=== PATIENT | male | born 1970 | race Caucasian/White ===

== ENCOUNTER 2016-06-30 02:53 | Inpatient (IN) | payer OTHER ==
[~2016-06-30] VITALS: Ht 175.3 cm; Wt 97.1 kg
[2016-06-30] VITALS (14 sets, daily range): BP systolic 123–134; BP diastolic 67–81; PULSE 69–105; RESP 10–22; TEMP 97.8–100.2; O2SAT 96–100
[2016-06-30] MEDS ORDERED: ceFAZolin 2 GM PREMIX 50 ML ONE (02:59)
[2016-06-30] MEDS ORDERED: DIPHTH/TETANUS/ACEL PERTUSSIS (BOOSTER) 0.5 ML VIAL/PFS IM ONE (03:00)
[2016-06-30 03:14] LABS: BASOPHIL % 0.2 % (0.0-2.0); EOSINOPHIL % 0.2 % (0.0-4.0); HEMATOCRIT 45.9 % (39.0-51.0); LYMPH % 9.3 % (9.0-44.0); LYMPHOCYTE # 1.4 TH/MM3 (1.0-4.8); MEAN CORPUSCULAR HEMOGLOBIN 30.7 PG (27.0-34.0); MEAN CORPUSCULAR HGB CONC 33.8 % (32.0-36.0); MONO % 8.2 % (0.0-8.0); NEUT % 82.1 % (16.0-70.0); PLATELET COUNT 240 TH/MM3 (150-450); RED BLOOD COUNT 5.04 MIL/MM3 (4.50-5.90); RED CELL DISTRIBUTION WIDTH 13.8 % (11.6-17.2); WHITE BLOOD COUNT 14.6 TH/MM3 (4.0-11.0)
[2016-06-30 03:15] LABS: HEMO FLAGS AUTO DIFF
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
[2016-06-30 03:26] LABS: APTT (PATIENT) 22.6 SEC (24.3-30.1); PROTHROMBIN TIME - PATIENT 11.3 SEC (9.8-11.6)
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
[2016-06-30] MEDS ORDERED: IOHEXOL 350 MG/ML 10 ML VIAL (for RAD DIAG) IV ONE (03:41)
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
[2016-06-30 03:48] LABS: BANDS 22 % (0-6); BASOPHILS 1 % (0-2); METAMYELOCYTES 1 % (0-1); NEUTROPHIL # MANUAL DIFF 12.4 TH/MM3 (1.8-7.7); PLATELET ESTIMATE SMEAR NORMAL (NORMAL); PLATELET MORPHOLOGY NORMAL (NORMAL); POLYS (SEG NEUTROPHILS) 62 % (16-70); SCAN/DIFF FINAL DIFF MANUAL; WBC DIFF SAMPLE 100
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
[2016-06-30] MEDS ORDERED: ONDANSETRON HCL 4 MG/2 ML VIAL IV PRN (04:00)
[2016-06-30] MEDS ORDERED: CHLORHEXIDINE GLUCONATE 2 % 1 PACK (2 CLOTHS) TOP PRN (04:00)
[2016-06-30] MEDS: CHLORHEXIDINE GLUCONATE 2 % 1 PACK (2 CLOTHS) TOP SCH (04:00)
[2016-06-30] MEDS ORDERED: MISCELLANEOUS NURSING INFORMATION XX SCH (04:00)
[2016-06-30] MEDS ORDERED: SODIUM CHLORIDE 0.9% FLUSH 10 ML FLUSH IV FLUSH PRN (04:00)
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
[2016-06-30] MEDS: HYDROmorphone HCL PF 1 MG/ML VIAL IV PRN ×5 (04:18→21:56)
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
[2016-06-30] MEDS: SODIUM CHLOR 0.9% 1000 ML INJ 1,000 ML IV SCH ×3 (04:41→19:37)
[2016-06-30] MEDS ORDERED: RESP: ALBUTEROL 2.5 MG/3 ML NEB (PRN) INH (04:45)
[2016-06-30 04:58] LABS: CKMB 21.3 NG/ML (0.5-3.6)
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
[2016-06-30] MEDS: ACETAMINOPHEN/HYDROcodone 325 MG/5 MG TAB PO PRN ×3 (06:59→19:38)
[2016-06-30] MEDS ORDERED: GENTAMICIN SULFATE 80 MG/2 ML VIAL ONE (08:21)
[2016-06-30] MEDS: GENTAMICIN 80 MG PREMIX 100 ML IV SCH ×4 (08:39→23:34)
[2016-06-30] MEDS: ceFAZolin 2 GM PREMIX 50 ML IV SCH ×2 (08:39→16:35)
[2016-06-30] MEDS: BACITRACIN TOP OINT 15 GM TUBE TOPICAL SCH ×2 (08:40→19:37)
[2016-06-30] MEDS: LACTULOSE SYRUP 20 GM/30 ML CUP PO SCH (08:40)
[2016-06-30] MEDS: PANTOPRAZOLE SODIUM 40 MG VIAL IV SCH (08:40)
[2016-06-30] MEDS: SODIUM CHLORIDE 0.9% FLUSH 10 ML FLUSH IV FLUSH SCH ×2 (08:40→19:37)
[2016-06-30] MEDS ORDERED: SODIUM CHLORIDE 0.9% FLUSH 10 ML FLUSH SCH (09:00)
[2016-06-30] MEDS ORDERED: ACETAMINOPHEN 1000 MG/100 ML VIAL IV ONE (09:44)
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
[2016-06-30] MEDS ORDERED: Post-op Orders (for Pharmacy) MISC XX ONE (10:30)
[2016-06-30] MEDS ORDERED: SODIUM CHLORIDE 0.9% FLUSH 5 ML FLUSH IVF PRN (10:30)
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
[2016-06-30] MEDS ORDERED: PROPOFOL 200 MG/20 ML AMP IV ONE (12:00)
[2016-06-30] MEDS ORDERED: ONDANSETRON HCL 4 MG/2 ML VIAL IV PUSH ONE (12:00)
[2016-06-30 14:51] LABS: CKMB 260.3 NG/ML (0.5-3.6)
[2016-06-30] MEDS ORDERED: GADODIAMIDE PF 287 MG/ML 20 ML VIAL (for RAD MRI) IV ONE (14:55)
--- NOTE | 2016-06-30 15:08 | RADRPT ---
EXAM DATE/TIME: 06/30/2016 14:26 [facility] COMPARISON: CT CERVICAL SPINE W/O CONTRAST, June 30, 2016, 3:06. INDICATIONS : Fracture. MEDICAL HISTORY : None. SURGICAL HISTORY : Right thumb. Left ankle. ENCOUNTER: Subsequent ACUITY: 2 day PAIN SCORE: 8/10 LOCATION: neck TECHNIQUE: Multiplanar, multisequence MRI examination of the cervical spine was performed. FINDINGS: Alignment is normal. There is a subtle superior endplate compression fracture suspected at T1, T2 and T3. There is mild prevertebral soft tissue swelling from C2-C4. Prominent increased signal on invers ion recovery images with the paraspinal soft tissues and interspinous ligament regions. The patient h as bilateral C7 laminar fractures with corresponding increased T2 signal and fluid at this level. No evidence of spinal stenosis. There are no epidural collections. There is focal discontinuity of the l igamentum flavum at C6-7. C2-3: The thecal sac has a normal configuration. There is no evidence of disc herniation or spinal canal s tenosis. The neural foramina are patent bilaterally. C3-C4: The thecal sac has a normal configuration. There is no evidence of disc herniation or spinal canal s tenosis. The neural foramina are patent bilaterally. C4-C5: The thecal sac has a normal configuration. There is no evidence of disc herniation or spinal canal s tenosis. The neural foramina are patent bilaterally. C5-C6: The thecal sac has a normal configuration. There is no evidence of disc herniation or spinal canal s tenosis. The neural foramina are patent bilaterally. C6-C7: The thecal sac has a normal configuration. There is no evidence of disc herniation or spinal canal s tenosis. The neural foramina are patent bilaterally. C7-T1: The thecal sac has a normal configuration. There is no evidence of disc herniation or spinal canal s tenosis. The neural foramina are patent bilaterally. CONCLUSION: 1. The patient's C7 laminar fractures are best assessed on the CT cervical spine. In addition there a re subtle superior endplate compression deformities of T1-T3 which are incompletely evaluated on this study. 2. The spinal cord is normal in appearance. 3. There is prominent edema of the paraspinal soft tissues posteriorly in the cervical region, and in creased signal is present consistent with edema and interspinous ligament injury. There is abnormal s eparation of the C6 and C7 processes with a distance of 1.4 cm. 4. Ligamentous injury at C6-7 as above involving the ligamentum flavum. Mitch Barahona MD on June 30, 2016 at 14:55 Board Certified Radiologist. This report was verified electronically.
--- NOTE | 2016-06-30 15:35 | RADRPT ---
EXAM DATE/TIME: 06/30/2016 14:26 [facility] COMPARISON: No previous studies available for comparison. INDICATIONS : Weakness. CONTRAST: 20 cc Omniscan (gadodiamide) IV MEDICAL HISTORY : None. SURGICAL HISTORY : Right thumb. Left ankle. ENCOUNTER: Subsequent ACUITY: 1 day PAIN SCORE: 8/10 LOCATION: neck Percent stenosis is calculated using the diameter of the stenotic region over the diameter of the nor mal distal internal carotid artery. TECHNIQUE: Bolus infused MRA of the extracranial circulation was performed using a neurovascular coil. Post pro cessing was performed including rotating subvolume maximum intensity projections of each carotid komal ry, rotating full volume maximum intensity projections of both carotid arteries, sagittal and coronal sliding thin slab reformations of each carotid artery, and left oblique sliding thin slab reformatio n through the aortic arch to include the origin of the arch branch vessels. FINDINGS: AORTIC ARCH: There is a three vessel origin of the great vessels from the aorta. No evidence of ostial narrowing. RIGHT CAROTID: The common carotid artery is intact. The carotid bulb has a normal configuration without ulceration or narrowing. The internal carotid artery lumen is smooth without stenosis. The external carotid ar negar is intact. LEFT CAROTID: The common carotid artery is intact. The carotid bulb has a normal configuration without ulceration or narrowing. The internal carotid artery lumen is smooth without stenosis. The external carotid ar negar is intact. VERTEBRALS: The vertebral arteries have a symmetric diameter. No stenotic lesions are seen. CONCLUSION: Normal examination. Mitch Barahona MD on June 30, 2016 at 15:33 Board Certified Radiologist. This report was verified electronically.
[2016-06-30] MEDS ORDERED: SODIUM CHLORIDE 0.9% FLUSH 5 ML FLUSH IVF SCH (21:00)
[2016-06-30 22:03] LABS: CKMB 242.1 NG/ML (0.5-3.6)
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
[2016-07-01] VITALS (14 sets, daily range): BP systolic 104–145; BP diastolic 59–92; PULSE 70–89; RESP 14–25; TEMP 98–99.7; O2SAT 94–100
[2016-07-01] MEDS: ceFAZolin 2 GM PREMIX 50 ML IV SCH ×3 (02:04→17:22)
[2016-07-01] MEDS: HYDROmorphone HCL PF 1 MG/ML VIAL IV PRN ×5 (02:05→20:51)
[2016-07-01] MEDS: CHLORHEXIDINE GLUCONATE 2 % 1 PACK (2 CLOTHS) TOP SCH (04:00)
[2016-07-01 04:23] LABS: AUTOMATED NEUTROPHIL # 3.2 TH/MM3 (1.8-7.7); BASOPHIL % 0.5 % (0.0-2.0); EOSINOPHIL % 0.9 % (0.0-4.0); HEMATOCRIT 36.4 % (39.0-51.0); HEMO FLAGS DIFF FINAL; LYMPH % 25.9 % (9.0-44.0); LYMPHOCYTE # 1.3 TH/MM3 (1.0-4.8); MEAN CELL VOLUME 90.7 FL (80.0-100.0); MEAN CORPUSCULAR HEMOGLOBIN 30.1 PG (27.0-34.0); MEAN CORPUSCULAR HGB CONC 33.2 % (32.0-36.0); MONO % 9.7 % (0.0-8.0); PLATELET COUNT 119 TH/MM3 (150-450); RED BLOOD COUNT 4.01 MIL/MM3 (4.50-5.90); RED CELL DISTRIBUTION WIDTH 13.7 % (11.6-17.2); WHITE BLOOD COUNT 5.1 TH/MM3 (4.0-11.0)
[2016-07-01 05:23] LABS: BICARBONATE 26.7 MEQ/L (21.0-32.0); MAGNESIUM 2.3 MG/DL (1.5-2.5); POTASSIUM 4.1 MEQ/L (3.5-5.1)
[2016-07-01 05:52] LABS: TOTAL BILIRUBIN ADULT 0.3 MG/DL (0.2-1.0)
--- NOTE | 2016-07-01 06:27 | RADRPT ---
EXAM DATE/TIME: 07/01/2016 04:38 [facility] COMPARISON: CHEST SINGLE AP, June 30, 2016, 2:47. INDICATIONS : Shortness of breath, possible pulmonary disease. MEDICAL HISTORY : None. SURGICAL HISTORY : None. ENCOUNTER: Subsequent ACUITY: 3 days PAIN SCORE: Non-responsive. LOCATION: Bilateral chest FINDINGS: The cardiac silhouette is enlarged in transverse diameter. The lungs are free of acute parenchymal op acity. No effusions are identified. CONCLUSION: 1. Cardiomegaly. No acute pulmonary disease. Bjorn Sumner MD on July 01, 2016 at 6:25 Board Certified Radiologist. This report was verified electronically.
[2016-07-01 07:20] LABS: CKMB 151.5 NG/ML (0.5-3.6)
[2016-07-01 08:12] LABS: CALCIUM-PROTEIN CORRECTED 8.6 MG/DL (8.5-10.1)
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
[2016-07-01] MEDS: BACITRACIN TOP OINT 15 GM TUBE TOPICAL SCH ×2 (09:00→19:45)
[2016-07-01] MEDS: LACTULOSE SYRUP 20 GM/30 ML CUP PO SCH (09:05)
[2016-07-01] MEDS: PANTOPRAZOLE SODIUM 40 MG VIAL IV SCH (09:06)
[2016-07-01] MEDS: SODIUM BICARBONATE 8.4% INJ 150 MEQ in WATER STERILE FOR INJ 850 ML IV SCH ×3 (09:07→23:39)
[2016-07-01] MEDS: GENTAMICIN 80 MG PREMIX 100 ML IV SCH ×3 (09:08→23:39)
[2016-07-01] MEDS: DOCUSATE SODIUM 100 MG CAP PO SCH ×2 (09:09→19:44)
[2016-07-01] MEDS: SODIUM CHLORIDE 0.9% FLUSH 10 ML FLUSH IV FLUSH SCH ×2 (09:10→19:44)
[2016-07-01] MEDS: SODIUM CHLOR 0.9% 1000 ML INJ 1,000 ML IV SCH ×2 (09:54→19:54)
[2016-07-01] MEDS: ACETAMINOPHEN/HYDROcodone 325 MG/5 MG TAB PO PRN ×2 (10:32→19:44)
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
[2016-07-01] MEDS ORDERED: LIDOCAINE HCL 1% 50 ML VIAL ONE (14:08)
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
[2016-07-01] MEDS: MAGNESIUM HYDROXIDE SUSP 30 ML CUP PO SCH (19:44)
[2016-07-02] VITALS (12 sets, daily range): BP systolic 113–144; BP diastolic 63–91; PULSE 68–92; RESP 9–26; TEMP 97.8–99.1; O2SAT 94–98
[2016-07-02] MEDS: HYDROmorphone HCL PF 1 MG/ML VIAL IV PRN ×7 (00:04→22:24)
[2016-07-02] MEDS: ceFAZolin 2 GM PREMIX 50 ML IV SCH ×3 (01:31→17:36)
[2016-07-02] MEDS: CHLORHEXIDINE GLUCONATE 2 % 1 PACK (2 CLOTHS) TOP SCH (04:00)
[2016-07-02 04:15] LABS: AUTOMATED NEUTROPHIL # 2.6 TH/MM3 (1.8-7.7); BASOPHIL % 0.5 % (0.0-2.0); EOSINOPHIL # 0.1 TH/MM3 (0-0.4); EOSINOPHIL % 2.7 % (0.0-4.0); HEMATOCRIT 33.4 % (39.0-51.0); HEMO FLAGS DIFF FINAL; LYMPH % 29.3 % (9.0-44.0); LYMPHOCYTE # 1.3 TH/MM3 (1.0-4.8); MEAN CORPUSCULAR HEMOGLOBIN 31.5 PG (27.0-34.0); MONO % 8.5 % (0.0-8.0); PLATELET COUNT 114 TH/MM3 (150-450); RED BLOOD COUNT 3.71 MIL/MM3 (4.50-5.90); RED CELL DISTRIBUTION WIDTH 13.3 % (11.6-17.2); WHITE BLOOD COUNT 4.4 TH/MM3 (4.0-11.0)
[2016-07-02] MEDS: SODIUM CHLOR 0.9% 1000 ML INJ 1,000 ML IV SCH ×2 (04:15→15:38)
[2016-07-02 04:35] LABS: ALT (GPT) 113 U/L (12-78); ANION GAP 6 MEQ/L (5-15); AST (GOT) 411 U/L (15-37); BICARBONATE 32.5 MEQ/L (21.0-32.0); BLOOD UREA NITROGEN 4 MG/DL (7-18); CHLORIDE 99 MEQ/L (98-107); GLOMERULAR FILTRATION RATE 99 ML/MIN (>89); MAGNESIUM 2.1 MG/DL (1.5-2.5); POTASSIUM 3.8 MEQ/L (3.5-5.1); SODIUM (NA) 137 MEQ/L (136-145)
[2016-07-02 05:01] LABS: ALKALINE PHOSPHATASE 40 U/L (45-117); CREATINE KINASE 11362 U/L (39-308); TOTAL BILIRUBIN ADULT 0.4 MG/DL (0.2-1.0)
[2016-07-02 05:29] LABS: CKMB 29.6 NG/ML (0.5-3.6)
[2016-07-02] MEDS: ACETAMINOPHEN/HYDROcodone 325 MG/5 MG TAB PO PRN (05:48)
[2016-07-02] MEDS: BACITRACIN TOP OINT 15 GM TUBE TOPICAL SCH ×2 (09:00→21:00)
[2016-07-02] MEDS: PANTOPRAZOLE SODIUM 40 MG VIAL IV SCH (09:40)
[2016-07-02] MEDS: LACTULOSE SYRUP 20 GM/30 ML CUP PO SCH (09:40)
[2016-07-02] MEDS: DOCUSATE SODIUM 100 MG CAP PO SCH ×2 (09:40→20:10)
[2016-07-02] MEDS: GENTAMICIN 80 MG PREMIX 100 ML IV SCH ×2 (09:41→15:39)
[2016-07-02] MEDS: SODIUM CHLORIDE 0.9% FLUSH 10 ML FLUSH IV FLUSH SCH ×2 (09:42→20:08)
[2016-07-02] MEDS: SODIUM BICARBONATE 8.4% INJ 150 MEQ in WATER STERILE FOR INJ 850 ML IV SCH ×2 (10:03→20:08)
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
[2016-07-02] MEDS: ENOXAPARIN SODIUM 30 MG/0.3 ML SYRINGE SQ SCH (12:21)
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
[2016-07-02] MEDS: SODIUM CHLORIDE 0.9% FLUSH 10 ML FLUSH IV FLUSH PRN (17:36)
[2016-07-02] MEDS: MAGNESIUM HYDROXIDE SUSP 30 ML CUP PO SCH (20:11)
[2016-07-03] VITALS: BP 130/78; PULSE 80; RESP 20; TEMP 98; O2SAT 97
[2016-07-03] MEDS: ENOXAPARIN SODIUM 30 MG/0.3 ML SYRINGE SQ SCH ×3 (01:19→22:33)
[2016-07-03] MEDS: GENTAMICIN 80 MG PREMIX 100 ML IV SCH (01:19)
[2016-07-03] MEDS: CHLORHEXIDINE GLUCONATE 2 % 1 PACK (2 CLOTHS) TOP SCH (01:20)
[2016-07-03] MEDS: SODIUM CHLOR 0.9% 1000 ML INJ 1,000 ML IV SCH ×3 (01:20→20:49)
[2016-07-03] MEDS: ceFAZolin 2 GM PREMIX 50 ML IV SCH (01:20)
[2016-07-03] MEDS: HYDROmorphone HCL PF 1 MG/ML VIAL IV PRN ×5 (01:33→22:32)
[2016-07-03] MEDS: SODIUM CHLORIDE 0.9% FLUSH 10 ML FLUSH IV FLUSH PRN (01:35)
[2016-07-03 06:15] LABS: AUTOMATED NEUTROPHIL # 2.3 TH/MM3 (1.8-7.7); BASOPHIL % 0.5 % (0.0-2.0); EOSINOPHIL # 0.2 TH/MM3 (0-0.4); EOSINOPHIL % 3.7 % (0.0-4.0); HEMATOCRIT 36.3 % (39.0-51.0); HEMO FLAGS DIFF FINAL; LYMPH % 37.5 % (9.0-44.0); LYMPHOCYTE # 1.8 TH/MM3 (1.0-4.8); MEAN CELL VOLUME 90.6 FL (80.0-100.0); MEAN CORPUSCULAR HEMOGLOBIN 30.5 PG (27.0-34.0); MEAN CORPUSCULAR HGB CONC 33.7 % (32.0-36.0); MONO % 9.9 % (0.0-8.0); NEUT % 48.4 % (16.0-70.0); PLATELET COUNT 122 TH/MM3 (150-450); RED BLOOD COUNT 4.01 MIL/MM3 (4.50-5.90); RED CELL DISTRIBUTION WIDTH 13.2 % (11.6-17.2); WHITE BLOOD COUNT 4.8 TH/MM3 (4.0-11.0)
[2016-07-03 06:50] LABS: ALKALINE PHOSPHATASE 42 U/L (45-117); ALT (GPT) 100 U/L (12-78); ANION GAP 4 MEQ/L (5-15); AST (GOT) 341 U/L (15-37); BLOOD UREA NITROGEN 7 MG/DL (7-18); CHLORIDE 99 MEQ/L (98-107); CREATINE KINASE 6783 U/L (39-308); GLOMERULAR FILTRATION RATE 83 ML/MIN (>89); MAGNESIUM 2.2 MG/DL (1.5-2.5); POTASSIUM 4.2 MEQ/L (3.5-5.1); SODIUM (NA) 137 MEQ/L (136-145); TOTAL BILIRUBIN ADULT 0.4 MG/DL (0.2-1.0)
[2016-07-03 07:06] LABS: CKMB 8.7 NG/ML (0.5-3.6)
[2016-07-03 07:52] VITALS: O2SAT 99
[2016-07-03 08:00] VITALS: BP 127/63; PULSE 67; RESP 17; TEMP 97.9; O2SAT 97
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
[2016-07-03] MEDS: SODIUM BICARBONATE 8.4% INJ 150 MEQ in WATER STERILE FOR INJ 850 ML IV SCH ×2 (08:48→20:47)
[2016-07-03] MEDS: PANTOPRAZOLE SODIUM 40 MG VIAL IV SCH (08:50)
[2016-07-03] MEDS: SODIUM CHLORIDE 0.9% FLUSH 10 ML FLUSH IV FLUSH SCH ×2 (08:50→20:21)
[2016-07-03] MEDS: LACTULOSE SYRUP 20 GM/30 ML CUP PO SCH (08:50)
[2016-07-03] MEDS: DOCUSATE SODIUM 100 MG CAP PO SCH ×2 (08:50→20:21)
[2016-07-03] MEDS: BACITRACIN TOP OINT 15 GM TUBE TOPICAL SCH ×2 (08:52→20:22)
[2016-07-03] MEDS: ACETAMINOPHEN/HYDROcodone 325 MG/5 MG TAB PO PRN (09:04)
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
[2016-07-03 12:00] VITALS: BP 141/81; PULSE 87; RESP 17; TEMP 98.2; O2SAT 97
[2016-07-03 16:00] VITALS: BP 116/75; PULSE 63; RESP 19; TEMP 97.8; O2SAT 95
[2016-07-03] MEDS: MAGNESIUM HYDROXIDE SUSP 30 ML CUP PO SCH (20:21)
[2016-07-03] MEDS: ACETAMINOPHEN 325 MG TAB PO PRN (22:42)
[2016-07-04] MEDS: HYDROmorphone HCL PF 1 MG/ML VIAL IV PRN ×4 (02:40→22:35)
[2016-07-04] MEDS: CHLORHEXIDINE GLUCONATE 2 % 1 PACK (2 CLOTHS) TOP SCH (04:00)
[2016-07-04 06:25] LABS: AUTOMATED NEUTROPHIL # 2.1 TH/MM3 (1.8-7.7); BASOPHIL % 0.4 % (0.0-2.0); EOSINOPHIL # 0.2 TH/MM3 (0-0.4); HEMATOCRIT 38.9 % (39.0-51.0); HEMO FLAGS DIFF FINAL; LYMPH % 34.6 % (9.0-44.0); LYMPHOCYTE # 1.4 TH/MM3 (1.0-4.8); MEAN CELL VOLUME 89.3 FL (80.0-100.0); MEAN CORPUSCULAR HEMOGLOBIN 30.8 PG (27.0-34.0); MEAN CORPUSCULAR HGB CONC 34.5 % (32.0-36.0); PLATELET COUNT 170 TH/MM3 (150-450); RED BLOOD COUNT 4.36 MIL/MM3 (4.50-5.90); RED CELL DISTRIBUTION WIDTH 13.2 % (11.6-17.2)
[2016-07-04 06:58] LABS: ALT (GPT) 86 U/L (12-78); ANION GAP 5 MEQ/L (5-15); AST (GOT) 236 U/L (15-37); BICARBONATE 32.9 MEQ/L (21.0-32.0); BLOOD UREA NITROGEN 10 MG/DL (7-18); CHLORIDE 98 MEQ/L (98-107); GLOMERULAR FILTRATION RATE 90 ML/MIN (>89); MAGNESIUM 2.3 MG/DL (1.5-2.5); SODIUM (NA) 136 MEQ/L (136-145)
[2016-07-04 07:11] LABS: ALKALINE PHOSPHATASE 45 U/L (45-117); CREATINE KINASE 3135 U/L (39-308); TOTAL BILIRUBIN ADULT 0.5 MG/DL (0.2-1.0)
[2016-07-04 08:00] VITALS: BP 123/71; PULSE 72; RESP 18; TEMP 97.3; O2SAT 94
[2016-07-04] MEDS ORDERED: MILKSUS PO (08:06)
[2016-07-04] MEDS ORDERED: PANT40TA3 PO (08:06)
[2016-07-04] MEDS ORDERED: LACT10SO PO (08:06)
[2016-07-04] MEDS ORDERED: HYDR-3516 PO (08:06)
[2016-07-04] MEDS ORDERED: DOCU1CAP39 PO (08:06)
[2016-07-04] MEDS ORDERED: ENOX30P SQ (08:06)
[2016-07-04] MEDS: LACTULOSE SYRUP 20 GM/30 ML CUP PO SCH (09:00)
[2016-07-04] MEDS: DOCUSATE SODIUM 100 MG CAP PO SCH ×2 (09:21→21:29)
[2016-07-04] MEDS: SODIUM BICARBONATE 8.4% INJ 150 MEQ in WATER STERILE FOR INJ 850 ML IV SCH ×2 (09:22→21:30)
[2016-07-04] MEDS: SODIUM CHLORIDE 0.9% FLUSH 10 ML FLUSH IV FLUSH SCH ×2 (09:22→21:29)
[2016-07-04] MEDS: PANTOPRAZOLE SOD 40 MG DELAYED RELEASE TAB PO SCH (09:23)
[2016-07-04] MEDS: BACITRACIN TOP OINT 15 GM TUBE TOPICAL SCH ×2 (09:25→21:29)
[2016-07-04] MEDS: ACETAMINOPHEN/HYDROcodone 325 MG/5 MG TAB PO PRN ×3 (11:37→21:30)
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
[2016-07-04 12:00] VITALS: BP 134/80; PULSE 84; RESP 16; TEMP 97.5; O2SAT 97
[2016-07-04] MEDS: ENOXAPARIN SODIUM 30 MG/0.3 ML SYRINGE SQ SCH ×2 (15:10→22:35)
[2016-07-04 16:00] VITALS: BP 124/72; PULSE 88; RESP 16; TEMP 97.3; O2SAT 97
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
[2016-07-04 20:00] VITALS: BP 126/75; PULSE 77; RESP 16; TEMP 97.2; O2SAT 97
--- NOTE | 2016-07-04 20:01 | RADRPT ---
EXAM DATE/TIME: 07/04/2016 19:05 [place] COMPARISON: No previous studies available for comparison. INDICATIONS : Follow-up cervical fracture. MEDICAL HISTORY : Cervical fracture. SURGICAL HISTORY : None. ENCOUNTER: Subsequent ACUITY: 4 - 6 days PAIN SCORE: 5/10 LOCATION: Bilateral neck. FINDINGS: There are fractures through the lamina of C7 bilaterally. There is mild superior endplate depression at the superior endplate of T1. No significant change in alignment between neutral, flexion and exten jennifer views. CONCLUSION: Bilateral lamina fractures at C7 without significant change in alignment on flexion and extension vie ws at the cervicothoracic junction. Mild superior endplate depression at T1 of uncertain age. Chandana Carmen MD on July 04, 2016 at 19:53 Board Certified Radiologist. This report was verified electronically.
[2016-07-04] MEDS: MAGNESIUM HYDROXIDE SUSP 30 ML CUP PO SCH (21:29)
[2016-07-04] MEDS: diphenhydrAMINE HCL 25 MG CAP PO PRN (22:35)
[2016-07-04] MEDS: ACETAMINOPHEN 325 MG TAB PO PRN (22:42)
[2016-07-05] VITALS: BP 119/66; PULSE 71; RESP 16; TEMP 97.9; O2SAT 93
[2016-07-05] MEDS: HYDROmorphone HCL PF 1 MG/ML VIAL IV PRN ×2 (04:00→10:32)
[2016-07-05] MEDS: SODIUM BICARBONATE 8.4% INJ 150 MEQ in WATER STERILE FOR INJ 850 ML IV SCH (04:03)
[2016-07-05 05:51] LABS: AUTOMATED NEUTROPHIL # 2.1 TH/MM3 (1.8-7.7); BASOPHIL % 0.5 % (0.0-2.0); EOSINOPHIL # 0.2 TH/MM3 (0-0.4); EOSINOPHIL % 5.4 % (0.0-4.0); HEMATOCRIT 39.2 % (39.0-51.0); HEMO FLAGS DIFF FINAL; LYMPH % 34.6 % (9.0-44.0); LYMPHOCYTE # 1.5 TH/MM3 (1.0-4.8); MEAN CELL VOLUME 89.8 FL (80.0-100.0); MEAN CORPUSCULAR HEMOGLOBIN 30.3 PG (27.0-34.0); MEAN CORPUSCULAR HGB CONC 33.7 % (32.0-36.0); MONO % 9.8 % (0.0-8.0); NEUT % 49.7 % (16.0-70.0); PLATELET COUNT 176 TH/MM3 (150-450); RED BLOOD COUNT 4.37 MIL/MM3 (4.50-5.90); RED CELL DISTRIBUTION WIDTH 13.3 % (11.6-17.2); WHITE BLOOD COUNT 4.3 TH/MM3 (4.0-11.0)
[2016-07-05 06:25] LABS: ALKALINE PHOSPHATASE 47 U/L (45-117); ALT (GPT) 90 U/L (12-78); ANION GAP 8 MEQ/L (5-15); AST (GOT) 168 U/L (15-37); BICARBONATE 31.9 MEQ/L (21.0-32.0); BLOOD UREA NITROGEN 13 MG/DL (7-18); CHLORIDE 97 MEQ/L (98-107); CREATINE KINASE 1387 U/L (39-308); GLOMERULAR FILTRATION RATE 81 ML/MIN (>89); MAGNESIUM 2.5 MG/DL (1.5-2.5); POTASSIUM 3.7 MEQ/L (3.5-5.1); SODIUM (NA) 137 MEQ/L (136-145); TOTAL BILIRUBIN ADULT 0.5 MG/DL (0.2-1.0)
[2016-07-05 06:50] LABS: CKMB 1.7 NG/ML (0.5-3.6)
[2016-07-05 08:00] VITALS: BP 106/67; PULSE 64; RESP 17; TEMP 98.3; O2SAT 97
[2016-07-05] MEDS: PANTOPRAZOLE SOD 40 MG DELAYED RELEASE TAB PO SCH (08:26)
[2016-07-05] MEDS: DOCUSATE SODIUM 100 MG CAP PO SCH ×2 (08:26→22:18)
[2016-07-05] MEDS: LACTULOSE SYRUP 20 GM/30 ML CUP PO SCH (08:26)
[2016-07-05] MEDS: ACETAMINOPHEN/HYDROcodone 325 MG/5 MG TAB PO PRN ×3 (08:27→22:17)
[2016-07-05] MEDS: SODIUM CHLORIDE 0.9% FLUSH 10 ML FLUSH IV FLUSH SCH (08:28)
[2016-07-05] MEDS: BACITRACIN TOP OINT 15 GM TUBE TOPICAL SCH ×2 (08:30→22:20)
[2016-07-05] MEDS: ENOXAPARIN SODIUM 30 MG/0.3 ML SYRINGE SQ SCH ×2 (10:32→22:19)
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
[2016-07-05] MEDS ORDERED: DIPH25CA PO (11:59)
[2016-07-05 12:00] VITALS: BP 140/84; PULSE 68; RESP 18; TEMP 98.4; O2SAT 98
[2016-07-05] MEDS: diphenhydrAMINE HCL 25 MG CAP PO PRN ×2 (12:22→22:16)
[2016-07-05] MEDS ORDERED: NEUR300C PO (14:09)
[2016-07-05] MEDS ORDERED: MELA1TAB22 PO (14:09)
[2016-07-05] MEDS: ACETAMINOPHEN 325 MG TAB PO PRN (14:11)
[2016-07-05 16:00] VITALS: BP 112/67; PULSE 80; RESP 18; TEMP 98.5; O2SAT 94
[2016-07-05] MEDS ORDERED: MELATONIN 5 MG TAB PO ONE (16:00)
[2016-07-05] MEDS: GABAPENTIN 300 MG CAP PO SCH (18:13)
[2016-07-05 20:00] VITALS: BP 123/72; PULSE 71; RESP 16; TEMP 97.7; O2SAT 98
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
[2016-07-05] MEDS: MAGNESIUM HYDROXIDE SUSP 30 ML CUP PO SCH (22:19)
[2016-07-06] VITALS: BP 119/70; PULSE 81; RESP 18; TEMP 97.2; O2SAT 98
[2016-07-06] MEDS: SODIUM CHLORIDE 0.9% FLUSH 10 ML FLUSH IV FLUSH SCH ×2 (00:26→08:00)
[2016-07-06] MEDS: ACETAMINOPHEN/HYDROcodone 325 MG/5 MG TAB PO PRN ×2 (02:33→12:51)
[2016-07-06 08:00] VITALS: BP 114/70; PULSE 67; RESP 18; TEMP 97.3; O2SAT 99
[2016-07-06] MEDS: GABAPENTIN 300 MG CAP PO SCH ×2 (08:00→12:50)
[2016-07-06] MEDS: LACTULOSE SYRUP 20 GM/30 ML CUP PO SCH (08:00)
[2016-07-06] MEDS: PANTOPRAZOLE SOD 40 MG DELAYED RELEASE TAB PO SCH (08:00)
[2016-07-06] MEDS: DOCUSATE SODIUM 100 MG CAP PO SCH (08:00)
[2016-07-06] MEDS: BACITRACIN TOP OINT 15 GM TUBE TOPICAL SCH (08:01)
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
[2016-07-06] MEDS: ENOXAPARIN SODIUM 30 MG/0.3 ML SYRINGE SQ SCH (11:58)
[2016-07-06 12:00] VITALS: BP 118/70; PULSE 69; RESP 18; TEMP 98.4; O2SAT 100
[2016-07-06] MEDS: diphenhydrAMINE HCL 25 MG CAP PO PRN (12:50)
== END 2016-07-06 13:07 | DRG 571 ==
LOC: NEPI 02:53 → NEDA 03:51 → EDBD 03:51 → N03B 03:53 → N07B 07-02 14:05
PROVIDERS: ADMIT Surgery Trauma Surgery; ATTEND Surgery Trauma Surgery
PROC: 3E1U38Z Irrigation of Joints using Irrigating Substance, Percutaneous Approach (ICD-10-PCS; 2016-06-30)
PROC: 0HBLXZZ Excision of Left Lower Leg Skin, External Approach (ICD-10-PCS; principal; 2016-06-30 09:41)
PROC: 0S9D0ZZ Drainage of Left Knee Joint, Open Approach (ICD-10-PCS; 2016-06-30 09:41)
DX: S81.012A Laceration without foreign body, left knee, initial encounter (principal); S12.600A Unspecified displaced fracture of seventh cervical vertebra, initial encounter for closed fracture; S12.000A Unspecified displaced fracture of first cervical vertebra, initial encounter for closed fracture; N17.9 Acute kidney failure, unspecified; S22.038A Other fracture of third thoracic vertebra, initial encounter for closed fracture; M62.82 Rhabdomyolysis; S27.322A Contusion of lung, bilateral, initial encounter; S02.113A Unspecified occipital condyle fracture, initial encounter for closed fracture; S89.82XA Other specified injuries of left lower leg, initial encounter; Y92.410 Unspecified street and highway as the place of occurrence of the external cause; Y93.89 Activity, other specified; Y99.0 Civilian activity done for income or pay; S01.111A Laceration without foreign body of right eyelid and periocular area, initial encounter; S00.81XA Abrasion of other part of head, initial encounter; S51.812A Laceration without foreign body of left forearm, initial encounter; S80.02XA Contusion of left knee, initial encounter; V58.5XXA Driver of pick-up truck or van injured in noncollision transport accident in traffic accident, initial encounter; R20.0 Anesthesia of skin; M25.462 Effusion, left knee
CPT/HCPCS: 51702; 70450; 70486; 70548; 71010; 71260; 72040; 72125; 72128; 72131; 72141; 72170; 73090; 73560; 73590; 74177; 75635; 80053; 82435; 82550; 82552; 82565; 82947; 83605; 83735; 84100; 84132; 84295; 84520; 85007; 85025; 85027; 85610; 85730; 86850; 86900; 86901; 90471; 90715; 94150; 96365; 96375; 99291; A9579; C9113; G0390; J0131; J0690; J1170; J1580; J1650; J2405; J3010; J7030; L0150; L0172; L0200; L0484; L1830; Q9967